=== PATIENT | male | born 1985 | race Caucasian/White ===

== ENCOUNTER 2017-06-30 11:26 | Emergency (ER) | payer BC ==
[~2017-06-30] VITALS: Ht 182.9 cm; Wt 86.0 kg
[~2017-06-30 11:26] MED LIST: AUGMENTIN875TAB PO; MUCINEX600 MG PO; NO CURRENT MEDS
[2017-06-30 12:21] LABS: HEMATOCRIT 42.4 % (39.0-50.0); HEMOGLOBIN 15.2 g/dl (14.0-18.0); IMMATURE GRANULOCYTES 0.2 % (0.0-1.0); MEAN CELL VOLUME 83.1 fL CALC (80.0-100.0); MEAN CORPUSCULAR HGB 29.8 pG CALC (26.0-32.0); MEAN CORPUSCULAR HGB CONC 35.8 g/L CALC (32.0-36.0); NEUT# 2.63 thou/uL (1.82-7.42); RED BLOOD COUNT 5.1 mill/uL (4.70-6.10); RED CELL DISTRI WIDTH 11.9 % (11.5-15.5)
[2017-06-30 12:39] LABS: ALKALINE PHOSPHATASE 83 u/l (38-126); AMYLASE 33 u/l (30-110); ANION GAP 18 (6-22 (CALC)); BILIRUBIN, TOTAL 0.7 mg/dL (0.0-1.4); BUN 11 mg/dL (9-20); BUN/CREATININE RATIO 14 (12-20 (CALC)); CARBON DIOXIDE 26 mmol/l (22-30); CHLORIDE 103 mmol/l (95-108); CREATININE 0.8 mg/dL (0.7-1.3); GFR > 60 ML/MIN (>=60 (CALC)); GFR FOR AFR.AMER. > 60 ML/MIN (>=60 (CALC)); GLUCOSE 107 mg/dL (75-110); LIPASE 60 u/l (23-300); POTASSIUM 3.9 mmol/l (3.5-5.1); SGOT/AST 35 u/l (17-59); SGPT/ALT 59 u/l (21-72); SODIUM 143 mmol/l (137-146); TOTAL PROTEIN 8.5 g/dL (6.3-8.2)
[2017-06-30] MEDS ORDERED: ZOFRAN ODT4 MG PO (12:44)
[2017-06-30 12:56] VITALS: BP 118/87
== END 2017-06-30 13:05 | disposition home or self-care (01) | DRG 392 ==
LOC: ED 11:26
PROVIDERS: Emergency Medicine
DX: K52.9 Noninfective gastroenteritis and colitis, unspecified (principal); F41.9 Anxiety disorder, unspecified

== ENCOUNTER 2017-10-02 07:40 | Emergency (ER) | payer BC ==
[~2017-10-02] VITALS: Ht 180.3 cm; Wt 82.0 kg
[~2017-10-02 07:40] MED LIST changes: +HYDROCODONE/ACE1 TAB PO; +ZOFRAN ODT4 MG PO
[2017-10-02 08:34] LABS: HEMATOCRIT 43.1 % (39.0-50.0); MEAN CELL VOLUME 84.3 fL CALC (80.0-100.0); MEAN CORPUSCULAR HGB 29.4 pG CALC (26.0-32.0); MEAN CORPUSCULAR HGB CONC 34.8 g/L CALC (32.0-36.0); NEUT# 2.5 thou/uL (1.82-7.42); RED BLOOD COUNT 5.11 mill/uL (4.70-6.10); RED CELL DISTRI WIDTH 11.7 % (11.5-15.5)
[2017-10-02 08:41] LABS: URINE BILIRUBIN - DIPSTICK NEGATIVE (NEGATIVE); URINE BLOOD DIPSTICK NEGATIVE (NEGATIVE); URINE COLOR YELLOW; URINE GLUCOSE - DIPSTICK NEGATIVE (NEGATIVE); URINE KETONE 15 mg/dL (NEGATIVE); URINE LEUK ESTERASE NEGATIVE (NEGATIVE); URINE NITRITE - DIPSTICK NEGATIVE (Negative); URINE PROTEIN - DIPSTICK TRACE mg/dL (NEG-TRACE); URINE SPECIFIC GRAVITY >=1.030
[2017-10-02 08:42] LABS: URINE CLARITY CLEAR
[2017-10-02 08:48] LABS: COCAINE NEGATIVE (NEGATIVE); TETRAHYDROCANNABIONOL NEGATIVE (NEGATIVE)
[2017-10-02 08:49] LABS: BARBITURATES NEGATIVE (NEGATIVE); METHADONE NEGATIVE (NEGATIVE); OXCYCODONE NEGATIVE (NEGATIVE); TRICYLIC ANTIDEPRESSANTS NEGATIVE (NEGATIVE)
[2017-10-02 08:55] LABS: ALKALINE PHOSPHATASE 77 u/l (38-126); AMYLASE 51 u/l (30-110); ANION GAP 21 (6-22 (CALC)); BILIRUBIN, TOTAL 1.1 mg/dL (0.0-1.4); BUN 12 mg/dL (9-20); BUN/CREATININE RATIO 18 (12-20 (CALC)); CARBON DIOXIDE 23 mmol/l (22-30); CHLORIDE 103 mmol/l (95-108); CREATININE 0.6 mg/dL (0.7-1.3); GFR > 60 ML/MIN (>=60 (CALC)); GFR FOR AFR.AMER. > 60 ML/MIN (>=60 (CALC)); GLUCOSE 126 mg/dL (75-110); LIPASE 42 u/l (23-300); POTASSIUM 3.9 mmol/l (3.5-5.1); SGOT/AST 23 u/l (17-59); SGPT/ALT 39 u/l (21-72); SODIUM 142 mmol/l (137-146); TOTAL PROTEIN 8.2 g/dL (6.3-8.2)
[2017-10-02] MEDS ORDERED: FIORICET PO (10:04)
[2017-10-02] MEDS ORDERED: ZOFRAN ODT4 MG PO (10:04)
[2017-10-02] MEDS ORDERED: FLONASE AL50 MCG/ACT (10:04)
[2017-10-02 10:15] VITALS: BP 117/75
== END 2017-10-02 10:10 | disposition home or self-care (01) | DRG 103 ==
LOC: ED 07:40
PROVIDERS: Emergency Medicine
DX: R51 Headache (principal); J32.9 Chronic sinusitis, unspecified; R11.2 Nausea with vomiting, unspecified

== ENCOUNTER 2018-05-22 17:52 | Emergency (ER) | payer SELFPAY ==
[~2018-05-22] VITALS: Ht 180.3 cm; Wt 79.8 kg
[~2018-05-22 17:52] MED LIST changes: +FIORICET PO; +FLONASE AL50 MCG/ACT
[2018-05-22 19:19] LABS: HEMATOCRIT 42.5 % (39.0-50.0); HEMOGLOBIN 14.8 g/dl (14.0-18.0); IMMATURE GRANULOCYTES 0.1 % (0.0-1.0); MEAN CELL VOLUME 83.5 fL CALC (80.0-100.0); MEAN CORPUSCULAR HGB 29.1 pG CALC (26.0-32.0); MEAN CORPUSCULAR HGB CONC 34.8 g/L CALC (32.0-36.0); NEUT# 4.46 thou/uL (1.82-7.42); RED BLOOD COUNT 5.09 mill/uL (4.70-6.10); RED CELL DISTRI WIDTH 11.6 % (11.5-15.5)
[2018-05-22 19:31] LABS: ALBUMIN 4.6 g/dL (3.2-5.0); ALKALINE PHOSPHATASE 79 u/l (38-126); ANION GAP 14 (6-22 (CALC)); BILIRUBIN, TOTAL 0.7 mg/dL (0.0-1.4); BUN 11 mg/dL (9-20); BUN/CREATININE RATIO 16 (12-20 (CALC)); CARBON DIOXIDE 28 mmol/l (22-30); CHLORIDE 100 mmol/l (95-108); CREATININE 0.7 mg/dL (0.7-1.3); GFR > 60 ML/MIN (>=60 (CALC)); GFR FOR AFR.AMER. > 60 ML/MIN (>=60 (CALC)); POTASSIUM 3.7 mmol/l (3.5-5.1); SGOT/AST 23 u/l (17-59); SGPT/ALT 41 u/l (21-72); SODIUM 139 mmol/l (137-146); TOTAL PROTEIN 8.2 g/dL (6.3-8.2)
[2018-05-22] MEDS ORDERED: NAPROSYN500 MG PO (19:52)
[2018-05-22 20:21] LABS: URINE BLOOD DIPSTICK LARGE (NEGATIVE); URINE COLOR YELLOW; URINE GLUCOSE - DIPSTICK NEGATIVE (NEGATIVE); URINE KETONE 40 mg/dL (NEGATIVE); URINE LEUK ESTERASE NEGATIVE (NEGATIVE); URINE NITRITE - DIPSTICK NEGATIVE (Negative); URINE PH 6.5 (4.5-8.0); URINE PROTEIN - DIPSTICK TRACE mg/dL (NEG-TRACE)
[2018-05-22 20:22] LABS: URINE BILIRUBIN - DIPSTICK NEGATIVE (NEGATIVE); URINE CLARITY CLEAR; URINE WBC 0-2 WBC/hpf (0-5)
[2018-05-22 20:23] LABS: URINE CALCIUM OXALATE CRYSTALS FEW lpf
[2018-05-22 20:25] LABS: BARBITURATES NEGATIVE (NEGATIVE); COCAINE NEGATIVE (NEGATIVE); METHADONE NEGATIVE (NEGATIVE); OXCYCODONE POSITIVE (NEGATIVE); TETRAHYDROCANNABIONOL NEGATIVE (NEGATIVE); TRICYLIC ANTIDEPRESSANTS NEGATIVE (NEGATIVE)
[2018-05-22] MEDS ORDERED: FLUOXETINE40 MG PO (22:01)
[2018-05-22] MEDS ORDERED: TRAZODONE50 MG PO (22:02)
[2018-05-22] MEDS ORDERED: CIPROFLOXACN500 MG PO (22:52)
[2018-05-22 23:15] VITALS: BP 112/66
== END 2018-05-22 23:15 | disposition home or self-care (01) | DRG 690 ==
LOC: ED 17:52
PROVIDERS: Emergency Medicine
DX: N30.90 Cystitis, unspecified without hematuria (principal); R11.10 Vomiting, unspecified
CPT/HCPCS: Q9967

== ENCOUNTER 2019-03-02 19:19 | Emergency (ER) | payer BC ==
[~2019-03-02] VITALS: Ht 177.8 cm; Wt 79.5 kg
[~2019-03-02 19:19] MED LIST changes: +CIPROFLOXACN500 MG PO; +FLUOXETINE40 MG PO; +NAPROSYN500 MG PO; +TRAZODONE50 MG PO
[2019-03-03 00:57] VITALS: BP 101/55
== END 2019-03-03 00:57 | disposition home or self-care (01) | DRG 897 ==
LOC: ED 19:19
DX: F11.23 Opioid dependence with withdrawal (principal); R11.2 Nausea with vomiting, unspecified; R35.0 Frequency of micturition

== ENCOUNTER 2020-09-16 11:12 | Emergency (ER) | payer SELFPAY ==
[~2020-09-16] VITALS: Ht 177.8 cm; Wt 90.0 kg
[2020-09-16 12:31] LABS: HEMATOCRIT 45.5 % (39.0-50.0); HEMOGLOBIN 14.9 g/dl (14.0-18.0); IMMATURE GRANULOCYTES 0.2 % (0.0-5.0); MEAN CELL VOLUME 81.7 fL CALC (80.0-100.0); MEAN CORPUSCULAR HGB 26.8 pG CALC (26.0-32.0); MEAN CORPUSCULAR HGB CONC 32.7 g/dL CAL (32.0-36.0); NEUT# 4.17 thou/uL (1.82-7.42); RED BLOOD COUNT 5.57 mill/uL (4.70-6.10)
[2020-09-16] MEDS ORDERED: SILVADENE1 % EX (12:40)
[2020-09-16 12:46] LABS: ALBUMIN 4.4 g/dL (3.2-5.0); ALKALINE PHOSPHATASE 119 u/l (38-126); ANION GAP 12 (6-22 (CALC)); BILIRUBIN, TOTAL 0.5 mg/dL (0.0-1.4); BUN 15 mg/dL (9-20); BUN/CREATININE RATIO 19 (12-20 (CALC)); CARBON DIOXIDE 30 mmol/l (22-30); CHLORIDE 100 mmol/l (95-108); CREATININE 0.8 mg/dL (0.7-1.3); GFR > 60 ML/MIN (>=60 (CALC)); GFR FOR AFR.AMER. > 60 ML/MIN (>=60 (CALC)); POTASSIUM 4.7 mmol/l (3.5-5.1); SGOT/AST 37 u/l (17-59); SODIUM 137 mmol/l (137-146); TOTAL PROTEIN 8.1 g/dL (6.3-8.2)
[2020-09-16 13:10] VITALS: BP 138/93
== END 2020-09-16 13:10 | disposition left against medical advice (07) | DRG 999 ==
LOC: ED 11:12
PROVIDERS: Emergency Medicine
PROC: 2W2RX4Z Dressing of Left Lower Leg using Bandage (ICD-10-PCS; principal; 2020-09-16)
PROC: 2W2QX4Z Dressing of Right Lower Leg using Bandage (ICD-10-PCS; 2020-09-16)
DX: T24.222A Burn of second degree of left knee, initial encounter (principal); T31.20 Burns involving 20-29% of body surface with 0% to 9% third degree burns; T24.232A Burn of second degree of left lower leg, initial encounter; T25.212A Burn of second degree of left ankle, initial encounter; T24.221A Burn of second degree of right knee, initial encounter; T24.231A Burn of second degree of right lower leg, initial encounter; T25.211A Burn of second degree of right ankle, initial encounter; X08.8XXA Exposure to other specified smoke, fire and flames, initial encounter; Y93.89 Activity, other specified; Y92.22 Religious institution as the place of occurrence of the external cause; Y99.0 Civilian activity done for income or pay; Z91.19 Patient's noncompliance with other medical treatment and regimen

== ENCOUNTER 2021-07-25 09:41 | Inpatient (IN) | payer BC ==
[~2021-07-25] VITALS: Ht 177.8 cm; Wt 81.8 kg
[~2021-07-25 09:41] MED LIST changes: +SILVADENE1 % EX
--- NOTE | 2021-07-25 10:02 | NUR ---
TO ROOM VIA WHEELCHAIR FOR BEDSIDE TRIAGE.
--- NOTE | 2021-07-25 10:15 | NUR ---
TO ROOM FOR TRIAGE
--- NOTE | 2021-07-25 10:20 | NUR ---
POC REVIEWED. CALL JESSICA IN REACH
--- NOTE | 2021-07-25 13:36 | NUR ---
FATHER AT BEDSIDE
[2021-07-25 13:52] LABS: HEMATOCRIT 37.9 % (39.0-50.0); HEMOGLOBIN 12.2 g/dl (14.0-18.0); IMMATURE GRANULOCYTES 0.2 % (0.0-5.0); MEAN CELL VOLUME 77.7 fL CALC (80.0-100.0); MEAN CORPUSCULAR HGB CONC 32.2 g/dL CAL (32.0-36.0); NEUT# 9.44 thou/uL (1.82-7.42); RED BLOOD COUNT 4.88 mill/uL (4.70-6.10); RED CELL DISTRI WIDTH 14.5 % (11.5-15.5)
[2021-07-25 14:14] LABS: ALBUMIN 4.1 g/dL (3.2-5.0); ALKALINE PHOSPHATASE 106 u/l (38-126); BILIRUBIN, TOTAL 0.4 mg/dL (0.0-1.4); BUN 28 mg/dL (9-20); BUN/CREATININE RATIO 30 (12-20 (CALC)); CARBON DIOXIDE 33 mmol/l (22-30); CHLORIDE 94 mmol/l (95-108); CREATININE 0.9 mg/dL (0.7-1.3); GFR > 60 ML/MIN (>=60 (CALC)); GFR FOR AFR.AMER. > 60 ML/MIN (>=60 (CALC)); MAGNESIUM 2.1 mg/dL (1.6-2.3); SGOT/AST 33 u/l (17-59); SODIUM 137 mmol/l (137-146); TOTAL PROTEIN 7.9 g/dL (6.3-8.2)
[2021-07-25 14:15] LABS: ANION GAP 13 (6-22 (CALC)); POTASSIUM 3.4 mmol/l (3.5-5.1)
--- NOTE | 2021-07-25 15:00 | NUR ---
PATIENT SATURATION DECREASED. RT AT BEDSIDE FOR ABG.
--- NOTE | 2021-07-25 16:14 | NUR ---
PATIENT AWARE OF PENDING ADMISSION. CALL JESSICA IN REACH
--- NOTE | 2021-07-25 17:00 | NUR ---
RESP EASY, RESTING. CALL JESSICA IN REACH
--- NOTE | 2021-07-25 18:16 | NUR ---
PATIENT HAD REMOVED NASAL CANNULA, REPLACED. PATIENT STATES HE FEELS BETTER THAN HE DID. AWARE OF PENDING ADMISSION.
--- NOTE | 2021-07-25 19:40 | NUR ---
A/OX3 BILAT BREATH SOUNDS CLEAR NO CONGESTION NO COUGH NO SOB
--- NOTE | 2021-07-25 20:33 | NUR ---
W/P/D SKIN NO COUGH NO CONGESTION NO SOB.
[2021-07-25 20:39] VITALS: BP 129/75
[2021-07-25 21:09] VITALS: BP 126/77
[2021-07-25 21:39] VITALS: BP 129/75
--- NOTE | 2021-07-25 21:40 | NUR ---
PT VOIDED 600 KATHRYN URINE NO DYSPNEA
[2021-07-25 22:09] VITALS: BP 121/77
--- NOTE | 2021-07-25 22:35 | NUR ---
NO DYSPNEA NO COUGH OR CONGESTION W/P/D SKIN
[2021-07-25 22:39] VITALS: BP 113/64
[2021-07-25 23:09] VITALS: BP 114/71
--- NOTE | 2021-07-25 23:21 | NUR ---
NO COUGH NO CONGESTION NO SOB.A/OX3 TAKES SIPS WATER PO
[2021-07-26] VITALS (16 sets, daily range): BP systolic 103–140; BP diastolic 57–92
--- NOTE | 2021-07-26 00:35 | NUR ---
PT IS AWAKE ALERT DENIES SOB NO COUGH W/P/D SKI
--- NOTE | 2021-07-26 01:34 | NUR ---
W/P/D SKIN NO DYSPNEA NO CONGESTION NOR COUGH
--- NOTE | 2021-07-26 02:44 | NUR ---
W/P/D SKIN DROWSY NO S/S OF SOB NO COUGH OR CONGESTION
--- NOTE | 2021-07-26 03:51 | NUR ---
ASLEEP R SIDELYING HOB ELEV 45 DEGREES NO COUGH NO CONGESTION W/P/D SKIN
--- NOTE | 2021-07-26 05:05 | NUR ---
AWAKENED FROM SLEEP PT IS W/P/D PT REQUESTS MED TO HELP HIM SLEEP ADVISED I WILL ASK
--- NOTE | 2021-07-26 06:55 | NUR ---
A/OX3 NO FOCAL WEAKNESSES SPEECH CLEAR NO C/O PAIN CLEAR VOICES.NO COUGH OR CONGESTION
--- NOTE | 2021-07-26 07:00 | NUR ---
RECIEVED FOR CARE. SLEEPING. MONITORING CONTINUES.
--- NOTE | 2021-07-26 09:26 | NUR ---
LINENS CHANGED, PATIENT POSITIONED COMFORTABLY.
--- NOTE | 2021-07-26 10:02 | NUR ---
LAB IN TO DRAW BLOODWORK
--- NOTE | 2021-07-26 10:02 | NUR ---
Physician rounded. Patient RESTING QUIETLY.
[2021-07-26 10:19] LABS: HEMATOCRIT 38.9 % (39.0-50.0); HEMOGLOBIN 12.2 g/dl (14.0-18.0); IMMATURE GRANULOCYTES 0.1 % (0.0-5.0); MEAN CORPUSCULAR HGB 25.1 pG CALC (26.0-32.0); MEAN CORPUSCULAR HGB CONC 31.4 g/dL CAL (32.0-36.0); NEUT# 5.98 thou/uL (1.82-7.42); RED BLOOD COUNT 4.86 mill/uL (4.70-6.10); RED CELL DISTRI WIDTH 14.7 % (11.5-15.5)
[2021-07-26 10:38] LABS: ALBUMIN 3.6 g/dL (3.2-5.0); ALKALINE PHOSPHATASE 92 u/l (38-126); ANION GAP 11 (6-22 (CALC)); BILIRUBIN, TOTAL 0.3 mg/dL (0.0-1.4); BUN 25 mg/dL (9-20); BUN/CREATININE RATIO 42 (12-20 (CALC)); C-REACTIVE PROTEIN 7.6 mg/dL (0-0.9); CARBON DIOXIDE 34 mmol/l (22-30); CHLORIDE 97 mmol/l (95-108); CREATININE 0.6 mg/dL (0.7-1.3); GFR > 60 ML/MIN (>=60 (CALC)); GFR FOR AFR.AMER. > 60 ML/MIN (>=60 (CALC)); POTASSIUM 3.9 mmol/l (3.5-5.1); SGOT/AST 29 u/l (17-59); SODIUM 138 mmol/l (137-146); TOTAL PROTEIN 7.1 g/dL (6.3-8.2)
--- NOTE | 2021-07-26 11:05 | NUR ---
WARM SALT WATER GIVEN TO PATIENT TO GARGLE HE C/O OF SORE THROAT. ENJOYED,STATES IT HELPED
--- NOTE | 2021-07-26 12:18 | NUR ---
LUNCH TRAY GIVEN.
--- NOTE | 2021-07-26 12:36 | NUR ---
RT PRESENT TO DO 6 MINUTE WALK TEST ON PATIENT
--- NOTE | 2021-07-26 12:59 | NUR ---
walk test findingd reported to physician
--- NOTE | 2021-07-26 14:19 | NUR ---
SPOKE TO PATIENT AND DAD ON SPEAKER PHONE. POC DISCUSSED WITH OPPORTUNITY FOR QUESTIONS.
[2021-07-26] MEDS ORDERED: ZOFRAN4 MG/TAB PO (14:42)
[2021-07-26] MEDS ORDERED: DEXAMETHASON6 MG PO (14:42)
[2021-07-26] MEDS ORDERED: PROTONIX40 MG PO (14:42)
[2021-07-26] MEDS ORDERED: ASPIRIN REGULA325 M1 PO (14:43)
[2021-07-26] MEDS ORDERED: ZITHROMAX250 MG PO (14:43)
--- NOTE | 2021-07-26 15:04 | NUR ---
PATIENT AWARE OF PENDING DC,AWARE ONCE IV FLUIDS ARE COMPLETED HE IS TO BE DC'D
[2021-07-26] MEDS ORDERED: NAPROXEN EC500 MG PO (15:06)
[2021-07-26] MEDS ORDERED: TRAMADOL HYDROC50 M1 PO (15:06)
[2021-07-26] MEDS ORDERED: CYCLOBENZAPRINE10 MG PO (15:10)
[2021-07-26] MEDS ORDERED: GABAPENTIN300 M2 PO (15:10)
--- NOTE | 2021-07-26 16:05 | NUR ---
D/C instructions given with verbalization of understanding. Pt. discharged home in stable condition.
--- NOTE | 2021-07-26 16:14 | NUR ---
DISCHARGED HOME,STABLE UPON DC. EDUCATIONAL PACKET GIVEN AND REVIEWED. PAREMNT HERE TO CANDY ROLLER
== END 2021-07-26 16:20 | disposition home or self-care (01) | DRG 177 ==
LOC: ED 09:41 → ED-I 15:28 → ED 16:06 → ED-I 16:07
PROVIDERS: Emergency Medicine; ADMIT Hospitalist; ATTEND Hospitalist
PROC: XW033E5 Introduction of Remdesivir Anti-infective into Peripheral Vein, Percutaneous Approach, New Technology Group 5 (ICD-10-PCS; principal; 2021-07-25)
DX: U07.1 COVID-19 (principal); J12.82 Pneumonia due to coronavirus disease 2019; R09.02 Hypoxemia; E86.0 Dehydration
CPT/HCPCS: Q9967

== ENCOUNTER 2021-11-13 18:23 | Inpatient (IN) | payer BC ==
[~2021-11-13] VITALS: Ht 180.3 cm; Wt 88.0 kg
[~2021-11-13 18:23] MED LIST changes: +ASPIRIN REGULA325 M1 PO; +CYCLOBENZAPRINE10 MG PO; +DEXAMETHASON6 MG PO; +GABAPENTIN300 M2 PO; +NAPROXEN EC500 MG PO; +PROTONIX40 MG PO; +TRAMADOL HYDROC50 M1 PO; +ZITHROMAX250 MG PO; +ZOFRAN4 MG/TAB PO
--- NOTE | 2021-11-13 18:23 | NUR ---
PT TO ROOM 13 VIA EMS. MEDICATED FIRE SPRINKLER INSPECTOR ZOFRAN 4 MG IM.
--- NOTE | 2021-11-13 18:53 | NUR ---
REPORT PROVIDED TO KATELYN BLAND
[2021-11-13 19:07] LABS: IMMATURE GRANULOCYTES 0.1 % (0.0-5.0); MEAN CELL VOLUME 77.8 fL CALC (80.0-100.0); MEAN CORPUSCULAR HGB 25.8 pG CALC (26.0-32.0); MEAN CORPUSCULAR HGB CONC 33.2 g/dL CAL (32.0-36.0); NEUT# 19.41 thou/uL (1.82-7.42); RED BLOOD COUNT 5.81 mill/uL (4.70-6.10); RED CELL DISTRI WIDTH 14.2 % (11.5-15.5)
[2021-11-13 19:08] LABS: HEMATOCRIT 45.2 % (39.0-50.0)
--- NOTE | 2021-11-13 19:09 | NUR ---
PT AWARE OF PLAN OF CARE; PT AWARE OF NEEDING SAMPLE
[2021-11-13 19:24] LABS: AMYLASE 134 u/l (30-110); BUN 21 mg/dL (9-20); BUN/CREATININE RATIO 17 (12-20 (CALC)); CHLORIDE 94 mmol/l (95-108); CREATININE 1.3 mg/dL (0.7-1.3); ETHYL ALCOHOL 0 mg/dl (0-30); GFR > 60 ML/MIN (>=60 (CALC)); GFR FOR AFR.AMER. > 60 ML/MIN (>=60 (CALC)); LIPASE 99 u/l (23-300); POTASSIUM 3.3 mmol/l (3.5-5.1); SGOT/AST 34 u/l (17-59); SODIUM 140 mmol/l (137-146)
--- NOTE | 2021-11-13 19:25 | NUR ---
PT RHYTHM IN POTENTIAL SVT; MD NOTIFIED; PER MD ORDERS, ADENOSINE 6 MG GIVEN; PT RHYTHM IN SINUS TACH
[2021-11-13 19:30] LABS: ALKALINE PHOSPHATASE 203 u/l (38-126); ANION GAP 24 (6-22 (CALC)); BILIRUBIN, TOTAL 0.9 mg/dL (0.0-1.4); CARBON DIOXIDE 25 mmol/l (22-30); TOTAL PROTEIN 10.3 g/dL (6.3-8.2)
--- NOTE | 2021-11-13 21:01 | NUR ---
PT RETURNED FROM CT; LAB AT BEDSIDE FOR LACTIC DRAW
--- NOTE | 2021-11-13 21:10 | NUR ---
PT/FAMILY MEMBER UPDATED ON PLAN OF CARE
--- NOTE | 2021-11-13 21:58 | NUR ---
PT AWARE OF NEEDING TO PROVIDE URINE SAMPLE; PT STATES "I CAN'T PEE." NURSING NOTIFIED PT OF HAVING 2L OF FLUIDS AND 1L CURRENTLY RUNNING TO HELP WITH PEEING. PT STATES HE WILL ATTEMPT
--- NOTE | 2021-11-13 22:59 | NUR ---
PT ATTEMPTING TO PROVIDE URINE SAMPLE
--- NOTE | 2021-11-13 23:09 | NUR ---
PT UNABLE TO PROVIDE URINE SAMPLE AT THIS TIME
--- NOTE | 2021-11-13 23:17 | NUR ---
MD AT BEDSIDE DISCUSSING PLAN OF CARE
[2021-11-14] VITALS (7 sets, daily range): BP systolic 114–147; BP diastolic 57–79
--- NOTE | 2021-11-14 00:20 | NUR ---
REPORT CALLED TO RN UPSTAIRS FOR RM 273
--- NOTE | 2021-11-14 00:25 | NUR ---
PT BEING TRANSPORTED TO 273 WITH TELE
--- NOTE | 2021-11-14 01:00 | NUR ---
PATIENT ADMITTED FROM ER VIA STRETCHER WITH ER STAFF IN ATTENDANCE. TRANSFERRED TO BED WITH ASSIST OF STAFF. PATIENT IS AWAKE ALERT WITH THE SHAKES. SKIN COLOR IS PALE AND SKIN IS COOL AND DRY. ORIENTED TO PERSON, PLACE. IVF LA HUNG AND INFUSING VIA RAC SITE-IS HEALTHY WITH GOOD BLOOD RETURN. TELE MONITOR IN PLACE-STILL ST AT THIS TIME. 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 STATES THAT HE SPENT 2 WEEKS AT [facility] THE END OF AUG/SEP OF THIS YEAR. WOUND ARE AT VARIOUS STAGES OF HEALING. PATIENT IS HAVING DRY HEEVES AT THIS TIME AND C/O SEVERE ABD AND THROAT PAIN. PATIENT STATES THAT AFTER HIS ACCIDENT WITH HIS LEGS THAT HE WAS RX MORPHINE AND HAS BEEN TAKING IT SINCE. HE STATES THAT HE IS NOW OUT OF IT SINCE SUNDAY. CAN'T REMEMBER THE DOCTORS NAME. STATES THAT HE HAS ALSO TAKING STREET [place]. STATES THAT HE CAN'T VOID FOR URINE SPEC AT THIS TIME. ATTEMPT TO ORIENT PATIENT TO ROOM AND SURROUNDINGS. INSTRUCTED PATIENT ON USE OF NURSE CALL LIGHT AND TV REMOTE. SAFETY PRECAUTIONS REINFORCED. CALL LIGHT IN REACH. WILL CONT TO MONITOR.
--- NOTE | 2021-11-14 01:45 | NUR ---
PATIENT RESTING IN BED STILL WITH THE SHAKES, MEDICATED WITH PEPCID 20MG IVP FOR INDIGESTION. MEDICATED WITH MOTRIN 800MG PO FOR PAIN AND TEMP. MEDICATED WITH COMPAZINE 10MG IVP FOR NAUSEA. STILL NOT ABLE TO VOID AT THIS TIME. PHOTOS TAKEN OF BOTH LEGS AND PLACED IN CHART PER PROTOCOL. CALL LIGHT IN REACH. WILL CONT TO MONITOR.
--- NOTE | 2021-11-14 02:00 | NUR ---
RECIEVED CALL FROM ED IN LAB WITH RESULTS OF LACTIC ACID-3.1. TRENDING DOWN. PATIENT STILL WITH SHAKES AND NOT ABLE TO VOID. IVF PATENT AND INFUSING VIA RAC SITE AT 250CC/HR. SITE REMAINS HEALTHY. CALL LIGHT IN REACH. WILL CONT TO MONITOR.
--- NOTE | 2021-11-14 03:00 | NUR ---
URINE SPEC OBTAINED AND SENT TO LAB. PATIENT RESTING IN BED-STILL WITH THE SHAKES. TELE MONITOR IN PLACE. IVF PATENT AND INFUSING ORDERED VIA RAC SITE. CALL LIGHT IN REACH. WILL CONT TO MONITOR.
[2021-11-14 03:10] LABS: URINE BLOOD DIPSTICK TRACE-INTACT (NEGATIVE); URINE COLOR YELLOW; URINE GLUCOSE - DIPSTICK NEGATIVE (NEGATIVE); URINE KETONE 40 mg/dL (NEGATIVE); URINE LEUK ESTERASE NEGATIVE (NEGATIVE); URINE PH 6.5 (4.5-8.0); URINE PROTEIN - DIPSTICK NEGATIVE (NEG-TRACE); URINE UROBILINOGEN - DIPSTICK 0.2 E.U./dL (0.2)
[2021-11-14 03:15] LABS: URINE BILIRUBIN - DIPSTICK SMALL (NEGATIVE); URINE NITRITE - DIPSTICK NEGATIVE (Negative)
[2021-11-14 04:22] LABS: IMMATURE GRANULOCYTES 0.7 % (0.0-5.0); MEAN CORPUSCULAR HGB 25.8 pG CALC (26.0-32.0); MEAN CORPUSCULAR HGB CONC 31.1 g/dL CAL (32.0-36.0); NEUT# 16.06 thou/uL (1.82-7.42); RED BLOOD COUNT 4.53 mill/uL (4.70-6.10); RED CELL DISTRI WIDTH 14.5 % (11.5-15.5)
[2021-11-14 04:23] LABS: HEMATOCRIT 37.6 % (39.0-50.0); HEMOGLOBIN 11.7 g/dl (14.0-18.0)
[2021-11-14 04:55] LABS: ANION GAP 14 (6-22 (CALC)); BUN 17 mg/dL (9-20); BUN/CREATININE RATIO 24 (12-20 (CALC)); CARBON DIOXIDE 26 mmol/l (22-30); CHLORIDE 104 mmol/l (95-108); CREATININE 0.7 mg/dL (0.7-1.3); GFR > 60 ML/MIN (>=60 (CALC)); GFR FOR AFR.AMER. > 60 ML/MIN (>=60 (CALC)); POTASSIUM 3.8 mmol/l (3.5-5.1); SODIUM 141 mmol/l (137-146)
--- NOTE | 2021-11-14 06:09 | NUR ---
PATIENT RESTING IN BED AT THIS TIME. IVF LR PATENT AND INFUSING VIA RAC SITE AT 250CC/HR. TELE MONITOR IN PLACE. CALL LIGHT IN REACH. WILL CONT TO MONITOR.
--- NOTE | 2021-11-14 07:45 | NUR ---
PATIENT LAYING IN BED AT THIS TIME. PATIENT IS ALERT AND ORINETED X 3 . PATIENT SHAKEY AT THIS TIME AND CIWA SCORE IS A 4. PATIENT ADMITS TO TAKING ILLEGAL DRUGS LAST NIGHT PRIOR TO ADMISSION. VICE PRESIDENT NETWORK DEVELOPMENT DONE SEE INTERVENTIONS AT THIS TIME. TELE MONITOR ON AND BEING MONITORED BY ED. PATIENT PRESENTS WITH BILATERAL HEALING PAGE THAT ARE SCABBED OVER AND FROM PREVIOUS ACCIDENT THAT INVOLED A PROPANE EXPLOSION. PATIENT SIDERAILS ARE UP CALL LIGHT IS WIHTIN REACH. PATIENT DENIES ANY PAIN AT THIS TIME. WILL CONTINUE TO MONITOR
--- NOTE | 2021-11-14 09:08 | NUR ---
PATIENT STATING HE FEELS "A LITTLE NAUSEATED" AND REQUESTING SOMEHTING FOR NAUSEA. PATIENT GIVEN 10MG OF COMPAZINE IV AT THIS TIME. PATIENT SIDERAILS ARE UP CALL LIGHT IS WITHIN REACH. NO VOMITING NOTED AT THIS TIME.
--- NOTE | 2021-11-14 11:05 | NUR ---
ED CALLED TO FLOOR AT THIS TIME. REGARDING PATIENT HEART RATE JUMPING INTO THE 170'S AND THEN RETURN DOWN TO 120. FRED EVANS APRN AND DR. COELHO ON FLOOR AND GIVEN INFORMATION AND PATIENT IS SITTING UP IN BED WITH MOTHER AT BEDSIDE. PATINET IS TEARFUL AND STATES HE IS COLD. PATIENT PROVIDED A WARM BLANKET FOR COMFORT AT THIS TIME.
--- NOTE | 2021-11-14 11:22 | NUR ---
PATIENT SITTING UP IN BED WITH MOTHER AT BEDSIDE. PATIENT CIWA SCORE IS A 4 DUE TO SMALL TERMORING. PATIENT STATES THAT HE IS COLD AND WARM BLANKET GIVEN COMFORT AT THIS TIME. PATIENT STATES "I DON'T FEEL GOOD" TELE MONITOR ON AND BEING MONTIORED BY ED. DR. COELHO AND FRED EVANS ARPN IN TO SEE PATIENT AT THIS TIME.
--- NOTE | 2021-11-14 11:36 | NUR ---
PATIENT GIVEN 1MG OF ATIVAN AT THIS TIME IV DUE TO SHAKING AND CIWA SCORE OF 4 AT THIS TIME. FATHER AT BEDSIDE SIDERAILS ARE UP X 2 CALL LIGHT WITHIN REACH. WILL CONTINUE TO MONITOR.
--- NOTE | 2021-11-14 16:00 | NUR ---
PATIENT RESTING IN CHAIR AT THIS TIME. PATIENT HAS NO SHAKING AND IS ALERT X 3 PATINET HAS NO VISABLE SIGNS OF ANXIETY AND IS RESTING COMFORTABLY IN CHAIR. PATIENT CIWA SCORE AT THIS TIME IS 0 AND CALL LIGHT IS WIHTIN REACH.
--- NOTE | 2021-11-14 16:16 | NUR ---
PATIENT GIVEN 25MG OF LOPRESSOR AT THIS TIME VIA DR. MOODY PATIENT EDUCATED ON MEDICATION.
--- NOTE | 2021-11-14 20:30 | NUR ---
PATIENT RESTING IN BED AT THIS TIME-PATIENT REMAINS RESTLESS AND C/O NAUSEA. MEDICATED WITH COMPAZINE 10MG IV VIA LAC SITE. IVF LR PATENT AND INFUSING AT 125CC/HR. SITE IS HEALTHY WITH GOOD BLOOD RETURN. PATIENT STATES THAT HE DID JUST HAVE SHOWER. C/O SOME BURNING UPON URINATION. ENCOURAGED PO FLUIDS AND USE URINAL FOR ACCURATE I&O. TELE MONITOR IN PLACE-97. LUNGS ARE CLEAR. ABD IS SOFT WITH ACTIVE BS. SAFETY PRECAUTIONS REINFORCED. CALL LIGHT IN REACH. WILL CONT TO MONITOR.
--- NOTE | 2021-11-14 22:30 | NUR ---
PATIENT CONT TO BE RESTLESS AND THRAHING ABOUT IN BED. MEDICATED WITH ATIVAN 1MG IVP FOR ANXIETY AND RESTLESSNESS. IVF PATENT AND INFUSING VIA LEFT AC SITE AT 125CC/HR. TELE MONITOR IN PLACE. CALL LIGHT IN REACH. WILL CONT TO MONITOR.
[2021-11-15 00:08] VITALS: BP 132/77
--- NOTE | 2021-11-15 00:32 | NUR ---
APPEARS SLEEPING WITH EYES CLOSED AT THIS TIME. RESPS ARE EVEN AND UNLABORED. IVF LR PATENT AND INFUSING VIA LEFT AC SITE AT 125CC/HR. TELE MONITOR IN PLACE. CALL LIGHT IN REACH. WILL CONT TO MONITOR.
--- NOTE | 2021-11-15 03:51 | NUR ---
RESTING IN BED AT THIS TIME WITH EYES CLOSED AND POSITIONED ON LEFT SIDE. RESPS ARE EVEN AND UNLABORED. IVF PATENT AND INFUSING VIA LEFT AC AT 125CC/HR. TELE MONITOR IN PLACE. CALL LIGHT IN REACH. WILL CONT TO MONITOR.
[2021-11-15 04:11] VITALS: BP 110/58
[2021-11-15 05:27] LABS: HEMATOCRIT 33.1 % (39.0-50.0); HEMOGLOBIN 10.5 g/dl (14.0-18.0); MEAN CELL VOLUME 82.1 fL CALC (80.0-100.0); MEAN CORPUSCULAR HGB 26.1 pG CALC (26.0-32.0); MEAN CORPUSCULAR HGB CONC 31.7 g/dL CAL (32.0-36.0); RED BLOOD COUNT 4.03 mill/uL (4.70-6.10); RED CELL DISTRI WIDTH 14.5 % (11.5-15.5)
[2021-11-15 05:29] LABS: ANION GAP 10 (6-22 (CALC)); BUN 11 mg/dL (9-20); BUN/CREATININE RATIO 23 (12-20 (CALC)); CARBON DIOXIDE 29 mmol/l (22-30); CHLORIDE 101 mmol/l (95-108); CREATININE 0.5 mg/dL (0.7-1.3); GFR > 60 ML/MIN (>=60 (CALC)); GFR FOR AFR.AMER. > 60 ML/MIN (>=60 (CALC)); POTASSIUM 3.9 mmol/l (3.5-5.1); SODIUM 136 mmol/l (137-146)
[2021-11-15 05:32] LABS: MAGNESIUM 1.5 mg/dL (1.6-2.3)
--- NOTE | 2021-11-15 08:19 | NUR ---
PT LAYING IN BED A&O X3. NO DISTRESS NOTED. C/O OF "IV DISCOMFORT" AND REQUESTING IV TO BE CHANGED. IV REMAINS HEALTHY AND PATENT. PT ALSO C/O NAUSEA; PRN MEDICATION ADMINISTERED. CLEAR BREATH SOUNDS UPON AUSCULTATION. ACTIVE BOWEL SOUNDS X4 QUADRANTS. TELEMTRY MONITOR IN PLACE. CIWA SCORE OF 7 THIS AM. ASSESSMENT COMPLETED. DISCUSSED POC. CALL LIGHT WITHIN REACH.
--- NOTE | 2021-11-15 10:06 | NUR ---
DR COELHO AND Loc EVANS APRN AT BEDSIDE DISCUSSING POC
[2021-11-15 11:27] VITALS: BP 131/81
--- NOTE | 2021-11-15 12:08 | NUR ---
Patient decides to leave AMA. Multiple attempts made to ecourage patient to remain here for continued treatment. Explained to patient all risks of leaving against medical advice including and drug overdose to patient and father as he was present . Pt verbalized understanding of all risks. Pt also encouraged to return to [facility] at any time, especially if symptoms continue or become worse. Pt verbalized understanding. IVs x2 intact upon removal. and Loc Mota ENVIRONMENTAL SERVICES MANAGER aware.
== END 2021-11-15 12:08 | disposition left against medical advice (07) | DRG 894 ==
LOC: ED 18:23 → ED-I 23:09 → ED 23:24 → MS2 23:25
PROVIDERS: Nurse Practitioner; ADMIT Internal Medicine; ATTEND Internal Medicine
DX: F11.13 Opioid abuse with withdrawal (principal); F16.10 Hallucinogen abuse, uncomplicated; E86.0 Dehydration; D72.829 Elevated white blood cell count, unspecified; Z20.822 Contact with and (suspected) exposure to COVID-19
CPT/HCPCS: J1650; J2060; J3475; Q9967; S0164

== ENCOUNTER 2022-04-13 17:06 | Emergency (ER) | payer BC ==
[~2022-04-13] VITALS: Ht 180.3 cm; Wt 86.0 kg
[2022-04-13 17:19] VITALS: BP 152/91
[2022-04-13 17:49] LABS: IMMATURE GRANULOCYTES 0.1 % (0.0-5.0); MEAN CELL VOLUME 82.7 fL CALC (80.0-100.0); MEAN CORPUSCULAR HGB 27.4 pG CALC (26.0-32.0); MEAN CORPUSCULAR HGB CONC 33.1 g/dL CAL (32.0-36.0); NEUT# 9.62 thou/uL (1.82-7.42); RED BLOOD COUNT 5.19 mill/uL (4.70-6.10); RED CELL DISTRI WIDTH 12.9 % (11.5-15.5)
[2022-04-13 17:50] LABS: HEMATOCRIT 42.9 % (39.0-50.0); HEMOGLOBIN 14.2 g/dl (14.0-18.0)
[2022-04-13 18:06] LABS: ALKALINE PHOSPHATASE 130 u/l (38-126); ANION GAP 18 (6-22 (CALC)); BILIRUBIN, TOTAL 0.7 mg/dL (0.0-1.4); BUN 15 mg/dL (9-20); BUN/CREATININE RATIO 24 (12-20 (CALC)); CARBON DIOXIDE 33 mmol/l (22-30); CHLORIDE 95 mmol/l (95-108); CREATININE 0.6 mg/dL (0.7-1.3); GFR > 60 ML/MIN (>=60 (CALC)); GFR FOR AFR.AMER. > 60 ML/MIN (>=60 (CALC)); LIPASE 38 u/l (23-300); POTASSIUM 3.6 mmol/l (3.5-5.1); SGOT/AST 23 u/l (17-59); SODIUM 142 mmol/l (137-146); TOTAL PROTEIN 9.5 g/dL (6.3-8.2)
[2022-04-13 18:37] VITALS: BP 135/87
[2022-04-13 19:39] VITALS: BP 121/80
[2022-04-13 19:50] LABS: URINE BLOOD DIPSTICK NEGATIVE (NEGATIVE); URINE COLOR YELLOW; URINE GLUCOSE - DIPSTICK NEGATIVE (NEGATIVE); URINE KETONE >=80 mg/dL (NEGATIVE); URINE LEUK ESTERASE NEGATIVE (NEGATIVE); URINE PH 5.5 (4.5-8.0); URINE PROTEIN - DIPSTICK TRACE mg/dL (NEG-TRACE); URINE SPECIFIC GRAVITY 1.015; URINE UROBILINOGEN - DIPSTICK 0.2 E.U./dL (0.2)
[2022-04-13 19:55] LABS: URINE BILIRUBIN - DIPSTICK SMALL (NEGATIVE); URINE NITRITE - DIPSTICK NEGATIVE (Negative)
[2022-04-13 20:00] VITALS: BP 133/77
[2022-04-13] MEDS ORDERED: MIRALAX17 GM PO (20:25)
[2022-04-13] MEDS ORDERED: PROMETHAZINE HY25 M1 PO (20:25)
[2022-04-13 20:37] VITALS: BP 133/77
== END 2022-04-13 20:56 | disposition home or self-care (01) | DRG 392 ==
LOC: ED 17:06
PROVIDERS: Family Medicine
DX: R11.10 Vomiting, unspecified (principal); K59.00 Constipation, unspecified; Z20.822 Contact with and (suspected) exposure to COVID-19
CPT/HCPCS: Q9967

== ENCOUNTER 2022-07-09 23:22 | Emergency (ER) | payer BC ==
[~2022-07-09] VITALS: Ht 180.3 cm; Wt 86.3 kg
[~2022-07-09 23:22] MED LIST changes: +MIRALAX17 GM PO; +PROMETHAZINE HY25 M1 PO
[2022-07-09 23:32] VITALS: BP 140/90
[2022-07-09 23:55] VITALS: BP 122/90
[2022-07-10 00:23] LABS: HEMATOCRIT 45.4 % (39.0-50.0); HEMOGLOBIN 14.8 g/dl (14.0-18.0); IMMATURE GRANULOCYTES 0.2 % (0.0-5.0); MEAN CELL VOLUME 82.8 fL CALC (80.0-100.0); MEAN CORPUSCULAR HGB CONC 32.6 g/dL CAL (32.0-36.0); NEUT# 8.3 thou/uL (1.82-7.42); RED BLOOD COUNT 5.48 mill/uL (4.70-6.10); RED CELL DISTRI WIDTH 12.8 % (11.5-15.5)
[2022-07-10 00:31] VITALS: BP 131/87
[2022-07-10 00:34] VITALS: BP 134/88
[2022-07-10 00:44] LABS: ALKALINE PHOSPHATASE 144 u/l (38-126); BILIRUBIN, TOTAL 0.8 mg/dL (0.0-1.4); BUN 23 mg/dL (9-20); BUN/CREATININE RATIO 29 (12-20 (CALC)); CHLORIDE 90 mmol/l (95-108); CREATININE 0.8 mg/dL (0.7-1.3); GFR FOR AFR.AMER. > 60 ML/MIN (>=60 (CALC)); GFR OTHER RACES > 60 ML/MIN (>=60 (CALC)); LIPASE 32 u/l (23-300); POTASSIUM 3.2 mmol/l (3.5-5.1); SGOT/AST 28 u/l (17-59); SODIUM 144 mmol/l (137-146)
[2022-07-10 00:50] LABS: ANION GAP 14 (6-22 (CALC))
[2022-07-10 00:56] LABS: CARBON DIOXIDE 43 mmol/l (22-30)
[2022-07-10] MEDS ORDERED: PROMETHAZINE HY25 M1 PO (01:46)
[2022-07-10] MEDS ORDERED: MIRALAX17 GM PO (01:46)
[2022-07-10 02:07] VITALS: BP 132/91
[2022-07-10 02:14] LABS: URINE BLOOD DIPSTICK NEGATIVE (NEGATIVE); URINE COLOR YELLOW; URINE GLUCOSE - DIPSTICK NEGATIVE (NEGATIVE); URINE KETONE 15 mg/dL (NEGATIVE); URINE LEUK ESTERASE NEGATIVE (NEGATIVE); URINE PH 5.5 (4.5-8.0); URINE PROTEIN - DIPSTICK 100 mg/dL (NEG-TRACE); URINE SPECIFIC GRAVITY >=1.030; URINE UROBILINOGEN - DIPSTICK 0.2 E.U./dL (0.2)
[2022-07-10 02:15] LABS: URINE BILIRUBIN - DIPSTICK MODERATE (NEGATIVE)
[2022-07-10 02:16] LABS: URINE NITRITE - DIPSTICK NEGATIVE (Negative)
[2022-07-10 02:25] LABS: URINE AMORPH SEDIMENT MANY hpf (NONE-FER); URINE BACTERIA FEW hpf; URINE MUCUS MANY hpf (NONE-FEW); URINE SQUAMOUS EPITHELIAL CELL FEW EPI/hpf (0-FEW)
[2022-07-10 02:30] VITALS: BP 137/89
[2022-07-10 03:00] VITALS: BP 136/86
[2022-07-10 03:32] VITALS: BP 136/86
== END 2022-07-10 03:28 | disposition home or self-care (01) | DRG 392 ==
LOC: ED 23:22
PROVIDERS: Family Medicine
DX: K52.9 Noninfective gastroenteritis and colitis, unspecified (principal); R11.10 Vomiting, unspecified; K59.00 Constipation, unspecified; R07.9 Chest pain, unspecified

== ENCOUNTER 2022-08-24 18:32 | Emergency (ER) | payer BC ==
[~2022-08-24] VITALS: Ht 180.3 cm; Wt 86.3 kg
[2022-08-24 18:42] VITALS: BP 129/80
[2022-08-24 19:00] VITALS: BP 117/70
[2022-08-24 19:06] LABS: IMMATURE GRANULOCYTES 0.1 % (0.0-5.0); MEAN CELL VOLUME 82.9 fL CALC (80.0-100.0); MEAN CORPUSCULAR HGB 27.9 pG CALC (26.0-32.0); MEAN CORPUSCULAR HGB CONC 33.7 g/dL CAL (32.0-36.0); NEUT# 5.77 thou/uL (1.82-7.42); RED BLOOD COUNT 4.33 mill/uL (4.70-6.10); RED CELL DISTRI WIDTH 12.6 % (11.5-15.5)
[2022-08-24 19:10] LABS: HEMATOCRIT 35.9 % (39.0-50.0); HEMOGLOBIN 12.1 g/dl (14.0-18.0)
[2022-08-24 19:30] VITALS: BP 120/87
[2022-08-24 19:32] LABS: ALBUMIN 4.2 g/dL (3.2-5.0); ALKALINE PHOSPHATASE 92 u/l (38-126); ANION GAP 13 (6-22 (CALC)); BILIRUBIN, TOTAL 0.3 mg/dL (0.0-1.4); BUN 14 mg/dL (9-20); BUN/CREATININE RATIO 19 (12-20 (CALC)); CARBON DIOXIDE 27 mmol/l (22-30); CHLORIDE 101 mmol/l (95-108); CPK 65 u/l (52-200); CREATININE 0.7 mg/dL (0.7-1.3); GFR FOR AFR.AMER. > 60 ML/MIN (>=60 (CALC)); GFR OTHER RACES > 60 ML/MIN (>=60 (CALC)); POTASSIUM 3.9 mmol/l (3.5-5.1); SGOT/AST 31 u/l (17-59); SODIUM 137 mmol/l (137-146); TOTAL PROTEIN 7.6 g/dL (6.3-8.2)
[2022-08-24 20:31] VITALS: BP 127/79
[2022-08-24] MEDS ORDERED: HYDROCO/APAP1 TA9 PO (20:45)
[2022-08-24 21:13] VITALS: BP 127/79
== END 2022-08-24 21:13 | disposition home or self-care (01) | DRG 103 ==
LOC: ED 18:32
PROVIDERS: Family Medicine
DX: R51.9 Headache, unspecified (principal)

== ENCOUNTER 2022-10-12 17:11 | Emergency (ER) | payer BC ==
[~2022-10-12] VITALS: Ht 180.3 cm; Wt 188.0 kg
[2022-10-12] VITALS (11 sets, daily range): BP systolic 101–139; BP diastolic 62–85
[~2022-10-12 17:11] MED LIST changes: +HYDROCO/APAP1 TA9 PO
[2022-10-12 17:54] LABS: HEMOGLOBIN 13.1 g/dl (14.0-18.0); IMMATURE GRANULOCYTES 0.2 % (0.0-5.0); MEAN CELL VOLUME 81.9 fL CALC (80.0-100.0); MEAN CORPUSCULAR HGB 28.2 pG CALC (26.0-32.0); MEAN CORPUSCULAR HGB CONC 34.5 g/dL CAL (32.0-36.0); NEUT# 7.06 thou/uL (1.82-7.42); RED BLOOD COUNT 4.64 mill/uL (4.70-6.10); RED CELL DISTRI WIDTH 12.3 % (11.5-15.5)
[2022-10-12 18:07] LABS: ALBUMIN 4.8 g/dL (3.2-5.0); ALKALINE PHOSPHATASE 115 u/l (38-126); ANION GAP 11 (6-22 (CALC)); BILIRUBIN, TOTAL 0.4 mg/dL (0.0-1.4); BUN 12 mg/dL (9-20); BUN/CREATININE RATIO 17 (12-20 (CALC)); CARBON DIOXIDE 31 mmol/l (22-30); CHLORIDE 102 mmol/l (95-108); CREATININE 0.7 mg/dL (0.7-1.3); GFR FOR AFR.AMER. > 60 ML/MIN (>=60 (CALC)); GFR OTHER RACES > 60 ML/MIN (>=60 (CALC)); LIPASE 35 u/l (23-300); POTASSIUM 4.1 mmol/l (3.5-5.1); SGOT/AST 32 u/l (17-59); SODIUM 139 mmol/l (137-146); TOTAL PROTEIN 8.6 g/dL (6.3-8.2)
[2022-10-12 20:54] LABS: URINE BILIRUBIN - DIPSTICK NEGATIVE (NEGATIVE); URINE BLOOD DIPSTICK NEGATIVE (NEGATIVE); URINE COLOR YELLOW; URINE GLUCOSE - DIPSTICK NEGATIVE (NEGATIVE); URINE KETONE 15 mg/dL (NEGATIVE); URINE LEUK ESTERASE NEGATIVE (NEGATIVE); URINE PROTEIN - DIPSTICK TRACE mg/dL (NEG-TRACE); URINE SPECIFIC GRAVITY >=1.030; URINE UROBILINOGEN - DIPSTICK 0.2 E.U./dL (0.2)
[2022-10-12 20:57] LABS: URINE NITRITE - DIPSTICK NEGATIVE (Negative)
[2022-10-12] MEDS ORDERED: PROMETHAZINE HY25 M1 PO (22:54)
[2022-10-12] MEDS ORDERED: FIORICET PO (22:54)
== END 2022-10-12 23:23 | disposition home or self-care (01) | DRG 103 ==
LOC: ED 17:11
PROVIDERS: Nurse Practitioner
DX: R51.9 Headache, unspecified (principal); K52.9 Noninfective gastroenteritis and colitis, unspecified; F19.10 Other psychoactive substance abuse, uncomplicated

== ENCOUNTER 2022-10-18 00:43 | Emergency (ER) | payer BC ==
[~2022-10-18] VITALS: Ht 180.3 cm; Wt 90.9 kg
[2022-10-18] VITALS (12 sets, daily range): BP systolic 127–172; BP diastolic 94–119
[2022-10-18 01:23] LABS: HEMATOCRIT 35.2 % (39.0-50.0); HEMOGLOBIN 11.6 g/dl (14.0-18.0); IMMATURE GRANULOCYTES 0.2 % (0.0-5.0); MEAN CELL VOLUME 83.6 fL CALC (80.0-100.0); MEAN CORPUSCULAR HGB 27.6 pG CALC (26.0-32.0); NEUT# 4.2 thou/uL (1.82-7.42); RED BLOOD COUNT 4.21 mill/uL (4.70-6.10); RED CELL DISTRI WIDTH 12.6 % (11.5-15.5)
[2022-10-18 01:34] LABS: ALBUMIN 4.3 g/dL (3.2-5.0); ALKALINE PHOSPHATASE 95 u/l (38-126); ANION GAP 11 (6-22 (CALC)); BILIRUBIN, TOTAL 0.3 mg/dL (0.0-1.4); BUN 8 mg/dL (9-20); BUN/CREATININE RATIO 14 (12-20 (CALC)); CARBON DIOXIDE 33 mmol/l (22-30); CHLORIDE 101 mmol/l (95-108); CREATININE 0.6 mg/dL (0.7-1.3); GFR FOR AFR.AMER. > 60 ML/MIN (>=60 (CALC)); GFR OTHER RACES > 60 ML/MIN (>=60 (CALC)); LIPASE 23 u/l (23-300); POTASSIUM 3.4 mmol/l (3.5-5.1); SGOT/AST 25 u/l (17-59); SODIUM 141 mmol/l (137-146); TOTAL PROTEIN 7.7 g/dL (6.3-8.2)
[2022-10-18] MEDS ORDERED: PHENERGAN25 MG RE (02:00)
== END 2022-10-18 05:25 | disposition home or self-care (01) | DRG 392 ==
LOC: ED 00:43
PROVIDERS: Family Medicine
DX: K52.9 Noninfective gastroenteritis and colitis, unspecified (principal)

== ENCOUNTER 2022-12-04 10:10 | Emergency (ER) | payer BC ==
[2022-12-04] VITALS (23 sets, daily range): BP systolic 98–146; BP diastolic 60–95
[~2022-12-04] VITALS: Ht 180.3 cm; Wt 100.0 kg
[~2022-12-04 10:10] MED LIST changes: +PHENERGAN25 MG RE
[2022-12-04 12:14] LABS: BASO% 0.4 % (0-3); EOS% 0.1 % (0-8); HEMATOCRIT 37.9 % (39.0-50.0); IMMATURE GRANULOCYTES 0.2 % (0.0-5.0); LYMPH% 11.9 % (15-41); MEAN CELL VOLUME 84.2 fL CALC (80.0-100.0); MEAN CORPUSCULAR HGB 28.9 pG CALC (26.0-32.0); MEAN CORPUSCULAR HGB CONC 34.3 g/dL CAL (32.0-36.0); MONO% 6.5 % (2-13); NEUT# 6.77 thou/uL (1.82-7.42); NEUT% 80.9 % (42-76); RED BLOOD COUNT 4.5 mill/uL (4.70-6.10); RED CELL DISTRI WIDTH 12.1 % (11.5-15.5)
[2022-12-04 12:34] LABS: ALBUMIN 4.6 g/dL (3.2-5.0); ALKALINE PHOSPHATASE 117 u/l (38-126); ANION GAP 11 (6-22 (CALC)); BILIRUBIN, TOTAL 0.4 mg/dL (0.0-1.4); BUN 10 mg/dL (9-20); BUN/CREATININE RATIO 13 (12-20 (CALC)); CARBON DIOXIDE 33 mmol/l (22-30); CHLORIDE 100 mmol/l (95-108); CREATININE 0.8 mg/dL (0.7-1.3); GFR FOR AFR.AMER. > 60 ML/MIN (>=60 (CALC)); GFR OTHER RACES > 60 ML/MIN (>=60 (CALC)); POTASSIUM 3.9 mmol/l (3.5-5.1); SGOT/AST 34 u/l (17-59); SODIUM 140 mmol/l (137-146); TOTAL PROTEIN 8.5 g/dL (6.3-8.2)
[2022-12-04] MEDS ORDERED: REGLAN10 MG PO (15:02)
[2022-12-04] MEDS ORDERED: TORADOL PO (15:02)
== END 2022-12-04 15:47 | disposition home or self-care (01) | DRG 103 ==
LOC: ED 10:10
PROVIDERS: Family Medicine
DX: R51.9 Headache, unspecified (principal)

== ENCOUNTER 2022-12-07 23:52 | Emergency (ER) | payer OTHER, BC ==
[~2022-12-07] VITALS: Ht 180.3 cm; Wt 90.9 kg
[~2022-12-07 23:52] MED LIST changes: +REGLAN10 MG PO; +TORADOL PO
[2022-12-08] VITALS (7 sets, daily range): BP systolic 100–104; BP diastolic 64–71
== END 2022-12-08 01:51 | disposition home or self-care (01) | DRG 552 ==
LOC: ED 23:52
DX: S16.1XXA Strain of muscle, fascia and tendon at neck level, initial encounter (principal); V43.52XA Car driver injured in collision with other type car in traffic accident, initial encounter; S43.401A Unspecified sprain of right shoulder joint, initial encounter; S29.012A Strain of muscle and tendon of back wall of thorax, initial encounter

== ENCOUNTER 2023-06-24 23:27 | Emergency (ER) | payer BC ==
[~2023-06-24] VITALS: Ht 180.3 cm; Wt 100.0 kg
[2023-06-24] MEDS ORDERED: VIBRAMYCIN100 M2 PO (23:58)
[2023-06-25 00:35] VITALS: BP 136/91
== END 2023-06-25 00:39 | disposition home or self-care (01) | DRG 728 ==
LOC: ED 23:27
DX: N45.1 Epididymitis (principal)

== ENCOUNTER 2023-07-29 20:18 | Emergency (ER) | payer BC ==
[~2023-07-29] VITALS: Ht 180.3 cm; Wt 99.0 kg
[~2023-07-29 20:18] MED LIST changes: +VIBRAMYCIN100 M2 PO
[2023-07-29 20:43] VITALS: BP 136/83
[2023-07-29 21:25] LABS: BASO% 0.8 % (0-3); HEMATOCRIT 40.9 % (39.0-50.0); HEMOGLOBIN 13.4 g/dl (14.0-18.0); IMMATURE GRANULOCYTES 0.3 % (0.0-5.0); LYMPH% 26.9 % (15-41); MEAN CORPUSCULAR HGB 27.5 pG CALC (26.0-32.0); MEAN CORPUSCULAR HGB CONC 32.8 g/dL CAL (32.0-36.0); MONO% 8.9 % (2-13); NEUT# 3.74 thou/uL (1.82-7.42); NEUT% 59.1 % (42-76); RED BLOOD COUNT 4.87 mill/uL (4.70-6.10); RED CELL DISTRI WIDTH 12.1 % (11.5-15.5)
[2023-07-29 21:36] LABS: ALBUMIN 4.3 g/dL (3.2-5.0); ALKALINE PHOSPHATASE 77 u/l (38-126); AMYLASE 52 u/l (30-110); BUN 17 mg/dL (9-20); BUN/CREATININE RATIO 20 (12-20 (CALC)); CHLORIDE 105 mmol/l (95-108); CREATININE 0.8 mg/dL (0.7-1.3); GFR FOR AFR.AMER. > 60 ML/MIN (>=60 (CALC)); GFR OTHER RACES > 60 ML/MIN (>=60 (CALC)); LIPASE 23 u/l (23-300); POTASSIUM 4.5 mmol/l (3.5-5.1); SGOT/AST 45 u/l (17-59); SODIUM 138 mmol/l (137-146); TOTAL PROTEIN 8.3 g/dL (6.3-8.2)
[2023-07-29 21:37] LABS: ANION GAP 12 (6-22 (CALC)); BILIRUBIN, TOTAL 0.7 mg/dL (0.2-1.3); CARBON DIOXIDE 26 mmol/l (22-30)
[2023-07-29] MEDS ORDERED: FIORICET PO (23:20)
[2023-07-29] MEDS ORDERED: ONDANSETRON4 MG PO (23:20)
[2023-07-30 00:16] VITALS: BP 132/70
== END 2023-07-30 00:16 | disposition home or self-care (01) | DRG 103 ==
LOC: ED 20:18
PROVIDERS: Emergency Medicine
DX: R51.9 Headache, unspecified (principal); Z20.822 Contact with and (suspected) exposure to COVID-19

== ENCOUNTER 2023-12-20 10:18 | Emergency (ER) | payer BC ==
[~2023-12-20] VITALS: Ht 180.3 cm; Wt 99.7 kg
[2023-12-20] VITALS (10 sets, daily range): BP systolic 108–133; BP diastolic 57–74
[~2023-12-20 10:18] MED LIST changes: +ONDANSETRON4 MG PO
[2023-12-20 10:58] LABS: BASO% 0.2 % (0-3); EOS% 0.1 % (0-8); HEMATOCRIT 40.1 % (39.0-50.0); HEMOGLOBIN 12.9 g/dl (14.0-18.0); IMMATURE GRANULOCYTES 0.2 % (0.0-5.0); LYMPH% 15.2 % (15-41); MEAN CORPUSCULAR HGB 26.4 pG CALC (26.0-32.0); MEAN CORPUSCULAR HGB CONC 32.2 g/dL CAL (32.0-36.0); MONO% 8.9 % (2-13); NEUT# 6.24 thou/uL (1.82-7.42); NEUT% 75.4 % (42-76); RED BLOOD COUNT 4.89 mill/uL (4.70-6.10); RED CELL DISTRI WIDTH 12.6 % (11.5-15.5)
[2023-12-20 11:13] LABS: ANION GAP 12 (6-22 (CALC)); BUN 16 mg/dL (9-20); BUN/CREATININE RATIO 26 (12-20 (CALC)); CARBON DIOXIDE 31 mmol/l (22-30); CHLORIDE 100 mmol/l (95-108); CREATININE 0.6 mg/dL (0.7-1.3); GFR FOR AFR.AMER. > 60 ML/MIN (>=60 (CALC)); GFR OTHER RACES > 60 ML/MIN (>=60 (CALC)); SODIUM 139 mmol/l (137-146)
[2023-12-20] MEDS ORDERED: AMOX/K CLAV875 M1 PO (13:00)
== END 2023-12-20 13:10 | disposition home or self-care (01) | DRG 103 ==
LOC: ED 10:18
PROVIDERS: Emergency Medicine
DX: G43.909 Migraine, unspecified, not intractable, without status migrainosus (principal); J32.0 Chronic maxillary sinusitis

== ENCOUNTER 2024-01-14 21:07 | Emergency (ER) | payer OTHER ==
[2024-01-14] VITALS (7 sets, daily range): BP systolic 95–134; BP diastolic 54–95
[~2024-01-14] VITALS: Ht 180.3 cm; Wt 105.0 kg
[~2024-01-14 21:07] MED LIST changes: +AMOX/K CLAV875 M1 PO
[2024-01-14] MEDS ORDERED: SODIUM CHLORIDE 0.9% 1,000 ML IV STA (21:29)
[2024-01-14] MEDS ORDERED: KETOROLAC TROMETHAMINE 30 MG/ML SDV IV ONE (21:30)
[2024-01-14] MEDS ORDERED: DiphenhydrAMINE HCL 50 MG/ML SDV IV ONE (21:30)
[2024-01-14] MEDS ORDERED: PROCHLORPERAZINE EDISYLATE 10 MG/2 ML SDV IV ONE (21:30)
[2024-01-14 22:01] LABS: BASO% 0.3 % (0-3); HEMATOCRIT 41.4 % (39.0-50.0); HEMOGLOBIN 13.7 g/dl (14.0-18.0); IMMATURE GRANULOCYTES 0.2 % (0.0-5.0); LYMPH% 8.7 % (15-41); MEAN CELL VOLUME 80.2 fL CALC (80.0-100.0); MEAN CORPUSCULAR HGB 26.6 pG CALC (26.0-32.0); MEAN CORPUSCULAR HGB CONC 33.1 g/dL CAL (32.0-36.0); MONO% 4.8 % (2-13); NEUT# 7.5 thou/uL (1.82-7.42); RED BLOOD COUNT 5.16 mill/uL (4.70-6.10)
[2024-01-14 22:39] LABS: ALBUMIN 5.1 g/dL (3.2-5.0); ANION GAP 15 (6-22 (CALC)); BILIRUBIN, TOTAL 0.5 mg/dL (0.2-1.3); BUN 13 mg/dL (9-20); BUN/CREATININE RATIO 20 (12-20 (CALC)); CARBON DIOXIDE 29 mmol/l (22-30); CHLORIDE 99 mmol/l (95-108); CREATININE 0.6 mg/dL (0.7-1.3); GFR FOR AFR.AMER. > 60 ML/MIN (>=60 (CALC)); GFR OTHER RACES > 60 ML/MIN (>=60 (CALC)); POTASSIUM 4.4 mmol/l (3.5-5.1); SGOT/AST 33 u/l (17-59); SODIUM 139 mmol/l (137-146); TOTAL PROTEIN 8.9 g/dL (6.3-8.2)
[2024-01-14 22:59] LABS: ALKALINE PHOSPHATASE 137 u/l (38-126)
[2024-01-14] MEDS ORDERED: traMADol HCL 50 MG/TAB PO ONE (23:40)
[2024-01-14] MEDS ORDERED: BUTALBITAL-APAP-CAFFEINE 50-325-40 TAB PO ONE (23:40)
[2024-01-15] VITALS: BP 90/57
== END 2024-01-15 00:18 | disposition home or self-care (01) | DRG 392 ==
LOC: ED 21:07
PROVIDERS: Family Medicine
DX: R11.10 Vomiting, unspecified (principal); R51.9 Headache, unspecified; T24.301D Burn of third degree of unspecified site of right lower limb, except ankle and foot, subsequent encounter; X08.8XXD Exposure to other specified smoke, fire and flames, subsequent encounter; Z94.5 Skin transplant status; Z20.822 Contact with and (suspected) exposure to COVID-19

== ENCOUNTER 2024-09-01 04:20 | Emergency (ER) | payer OTHER ==
[~2024-09-01] VITALS: Ht 177.8 cm; Wt 92.0 kg
[~2024-09-01 04:20] MED LIST changes: +CLONIDINE0.1 MG PO; +KLONOPIN2 MG PO; +NALTREXONE50 MG PO
[2024-09-01 04:26] VITALS: BP 129/89
[2024-09-01 04:30] VITALS: BP 122/77
[2024-09-01] MEDS ORDERED: ONDANSETRON HCl 4 MG/2 ML SDV IV STA (04:36)
[2024-09-01] MEDS ORDERED: SODIUM CHLORIDE 0.9% 1,000 ML IV STA (04:36)
[2024-09-01] MEDS ORDERED: FAMOTIDINE 10MG/ML 2ML SDV IV ONE (04:40)
[2024-09-01] MEDS ORDERED: DICYCLOMINE HCL 20 MG/2 ML VIAL IM ONE (04:40)
[2024-09-01] MEDS ORDERED: KETOROLAC TROMETHAMINE 30 MG/ML SDV IV ONE (04:40)
[2024-09-01 05:01] VITALS: BP 108/64
[2024-09-01 05:17] LABS: BASO% 0.4 % (0-3); EOS% 1.4 % (0-8); IMMATURE GRANULOCYTES 0.1 % (0.0-5.0); LYMPH% 28.4 % (15-41); MEAN CORPUSCULAR HGB 24.6 pG CALC (26.0-32.0); MEAN CORPUSCULAR HGB CONC 30.3 g/dL CAL (32.0-36.0); NEUT# 4.21 thou/uL (1.82-7.42); NEUT% 58.7 % (42-76); RED BLOOD COUNT 5.21 mill/uL (4.70-6.10); RED CELL DISTRI WIDTH 13.1 % (11.5-15.5)
[2024-09-01 05:20] LABS: HEMATOCRIT 42.2 % (39.0-50.0); HEMOGLOBIN 12.8 g/dl (14.0-18.0)
[2024-09-01 05:23] LABS: CREATININE 0.7 mg/dL (0.7-1.3); POTASSIUM 4.3 mmol/l (3.5-5.1)
[2024-09-01 05:26] VITALS: BP 122/77
[2024-09-01 05:31] LABS: ALBUMIN 4.6 g/dL (3.2-5.0); BILIRUBIN, TOTAL 0.7 mg/dL (0.2-1.3); TOTAL PROTEIN 8.5 g/dL (6.3-8.2)
[2024-09-02] MEDS ORDERED: ABILIFY10 MG PO (05:36)
== END 2024-09-01 05:27 | disposition left against medical advice (07) | DRG 392 ==
LOC: ED 04:20
PROVIDERS: Emergency Medicine
DX: R11.2 Nausea with vomiting, unspecified (principal); Z76.5 Malingerer [conscious simulation]; T24.001D Burn of unspecified degree of unspecified site of right lower limb, except ankle and foot, subsequent encounter; T24.002D Burn of unspecified degree of unspecified site of left lower limb, except ankle and foot, subsequent encounter; T79.8XXD Other early complications of trauma, subsequent encounter; Z91.199 Patient's noncompliance with other medical treatment and regimen due to unspecified reason

== ENCOUNTER 2024-09-02 01:34 | Observation (INO) | payer OTHER ==
[~2024-09-02] VITALS: Ht 175.3 cm; Wt 90.0 kg
[2024-09-02] VITALS (12 sets, daily range): BP systolic 89–142; BP diastolic 58–123
[2024-09-02] MEDS ORDERED: Pantoprazole Sodium 40 MG VIAL (Protonix) IV STA (01:58)
[2024-09-02] MEDS ORDERED: ONDANSETRON HCl 4 MG/2 ML SDV IV STA (01:58)
[2024-09-02] MEDS ORDERED: SODIUM CHLORIDE 0.9% 1,000 ML IV STA (01:58)
[2024-09-02] MEDS ORDERED: KETOROLAC TROMETHAMINE 15 MG/ML SDV IV STA (01:58)
[2024-09-02] MEDS ORDERED: DICYCLOMINE HCL 20 MG/2 ML VIAL IM ONE (02:00)
[2024-09-02 02:16] LABS: BASO% 0.1 % (0-3); HEMATOCRIT 44.7 % (39.0-50.0); HEMOGLOBIN 14.4 g/dl (14.0-18.0); MEAN CELL VOLUME 77.1 fL CALC (80.0-100.0); MEAN CORPUSCULAR HGB 24.8 pG CALC (26.0-32.0); MEAN CORPUSCULAR HGB CONC 32.2 g/dL CAL (32.0-36.0); MONO% 6.9 % (2-13); NEUT# 13.04 thou/uL (1.82-7.42); RED BLOOD COUNT 5.8 mill/uL (4.70-6.10); RED CELL DISTRI WIDTH 13.3 % (11.5-15.5)
[2024-09-02 02:37] LABS: ALBUMIN 5.3 g/dL (3.2-5.0); BILIRUBIN, TOTAL 0.7 mg/dL (0.2-1.3); CREATININE 1.2 mg/dL (0.7-1.3); POTASSIUM 3.5 mmol/l (3.5-5.1); TOTAL PROTEIN 9.8 g/dL (6.3-8.2)
[2024-09-02] MEDS ORDERED: MAGNESIUM HYDROXIDE 30 ML UDC PO PRN (04:45)
[2024-09-02] MEDS ORDERED: ACETAMINOPHEN 325 MG/TAB PO PRN (04:45)
[2024-09-02] MEDS ORDERED: SODIUM CHLORIDE 0.9% 1,000 ML IV PRN (04:45)
[2024-09-02] MEDS ORDERED: CLARIFY DOSE PO PRN (04:50)
[2024-09-02 05:17] LABS: URINE BILIRUBIN - DIPSTICK Negative (NEGATIVE); URINE BLOOD DIPSTICK Trace-intact (NEGATIVE); URINE GLUCOSE - DIPSTICK Negative (NEGATIVE); URINE KETONE Negative (NEGATIVE); URINE LEUK ESTERASE Negative (NEGATIVE); URINE NITRITE - DIPSTICK Negative (Negative); URINE PH 5.5 (4.5-8.0); URINE PROTEIN - DIPSTICK Negative (NEG-TRACE); URINE SPECIFIC GRAVITY <=1.005; URINE UROBILINOGEN - DIPSTICK 0.2 E.U./dL (0.2)
[2024-09-02 05:21] LABS: URINE COLOR Yellow
[2024-09-02 05:35] LABS: URINE BLOOD DIPSTICK Negative (NEGATIVE); URINE GLUCOSE - DIPSTICK Negative (NEGATIVE); URINE KETONE 15 mg/dL (NEGATIVE); URINE LEUK ESTERASE Negative (NEGATIVE); URINE NITRITE - DIPSTICK Negative (Negative); URINE PROTEIN - DIPSTICK 100 mg/dL (NEG-TRACE); URINE SPECIFIC GRAVITY >=1.030; URINE UROBILINOGEN - DIPSTICK 0.2 E.U./dL (0.2)
[2024-09-02] MEDS ORDERED: ABILIFY10 MG PO (05:36)
[2024-09-02 05:39] LABS: URINE COLOR Yellow
[2024-09-02 05:46] LABS: URINE BACTERIA FEW hpf; URINE MUCUS MANY hpf (NONE-FEW); URINE RBC 0-2 RBC/hpf (0-5); URINE SQUAMOUS EPITHELIAL CELL FEW EPI/hpf (0-FEW)
[2024-09-02] MEDS ORDERED: ENOXAPARIN SODIUM 40 MG/0.4 ML SYR SC SCH (21:00)
== END 2024-09-02 19:01 | disposition left against medical advice (07) | DRG 392 ==
LOC: ED 01:34 → ED-I 01:53 → ED 01:53 → ED-I 04:20 → ED 04:46 → MS2 04:47
PROVIDERS: Emergency Medicine; ADMIT Internal Medicine; ATTEND Internal Medicine
DX: K52.9 Noninfective gastroenteritis and colitis, unspecified (principal); F19.20 Other psychoactive substance dependence, uncomplicated; Z91.199 Patient's noncompliance with other medical treatment and regimen due to unspecified reason; Z94.5 Skin transplant status
CPT/HCPCS: G0378; J2470

== ENCOUNTER 2025-02-11 02:03 | Emergency (ER) | payer OTHER ==
[~2025-02-11] VITALS: Ht 175.3 cm; Wt 100.0 kg
[~2025-02-11 02:03] MED LIST changes: +ABILIFY10 MG PO
[2025-02-11 02:09] VITALS: BP 145/87
[2025-02-11] MEDS ORDERED: SODIUM CHLORIDE 0.9% 1,000 ML IV ONE (02:15)
[2025-02-11] MEDS ORDERED: ONDANSETRON HCl 4 MG/2 ML SDV IV ONE (02:15)
[2025-02-11 02:48] LABS: BASO% 0.3 % (0-3); HEMATOCRIT 40.7 % (39.0-50.0); HEMOGLOBIN 12.9 g/dl (14.0-18.0); IMMATURE GRANULOCYTES 0.9 % (0.0-5.0); LYMPH% 12.6 % (15-41); MEAN CELL VOLUME 77.7 fL CALC (80.0-100.0); MEAN CORPUSCULAR HGB 24.6 pG CALC (26.0-32.0); MEAN CORPUSCULAR HGB CONC 31.7 g/dL CAL (32.0-36.0); MONO% 10.6 % (2-13); NEUT# 7.08 thou/uL (1.82-7.42); NEUT% 75.6 % (42-76); RED BLOOD COUNT 5.24 mill/uL (4.70-6.10); RED CELL DISTRI WIDTH 13.9 % (11.5-15.5)
[2025-02-11 02:51] LABS: ALBUMIN 4.9 g/dL (3.2-5.0); BILIRUBIN, TOTAL 0.6 mg/dL (0.2-1.3); CREATININE 0.6 mg/dL (0.7-1.3); POTASSIUM 3.3 mmol/l (3.5-5.1); TOTAL PROTEIN 8.8 g/dL (6.3-8.2)
[2025-02-11 03:00] VITALS: BP 137/87
[2025-02-11 03:36] LABS: URINE BLOOD DIPSTICK Negative (NEGATIVE); URINE GLUCOSE - DIPSTICK Negative (NEGATIVE); URINE KETONE 40 mg/dL (NEGATIVE); URINE LEUK ESTERASE Negative (NEGATIVE); URINE NITRITE - DIPSTICK Negative (Negative); URINE PROTEIN - DIPSTICK 30 mg/dL (NEG-TRACE); URINE SPECIFIC GRAVITY >=1.030; URINE UROBILINOGEN - DIPSTICK 0.2 E.U./dL (0.2)
[2025-02-11 03:38] LABS: URINE COLOR Yellow
[2025-02-11] MEDS ORDERED: ZOFRAN4 MG/TAB PO (03:38)
[2025-02-11] MEDS ORDERED: ONDANSETRON 4 MG/TAB ODT PO ONE (03:40)
[2025-02-11 03:42] LABS: URINE BACTERIA FEW hpf; URINE EPITHELIAL CELLS FEW EPI/hpf (0-FEW); URINE MUCUS MANY hpf (NONE-FEW); URINE RBC 0-2 RBC/hpf (0-5)
[2025-02-11 04:00] VITALS: BP 122/70
--- NOTE | 2025-02-12 13:39 | NUR ---
Discharge follow up call completed 02/17=0. Patient states he had some discomfort last night but was better today. Patient has prescribed medication and is taking as directed. Patient will contact PCP to schedule a follow up appointment. No needs or concerns verbalized by patient at this time. He is appreciative of the follow up call.
== END 2025-02-11 04:06 | disposition home or self-care (01) | DRG 392 ==
LOC: ED 02:03
PROVIDERS: Family Medicine
DX: K52.9 Noninfective gastroenteritis and colitis, unspecified (principal); F19.10 Other psychoactive substance abuse, uncomplicated; Z20.822 Contact with and (suspected) exposure to COVID-19
CPT/HCPCS: J2405